=== PATIENT | female | born 1985 | race American Indian/Alaskan Native ===

== ENCOUNTER 2017-08-15 05:46 | Emergency (ER) | payer OTHER ==
[2017-08-15 06:13] LABS: Basophils % (Auto) 0.3 % (0.0-1.8); Eosinophils % (Auto) 0.5 % (0.0-4.3); Hemoglobin 11.1 gm/dl (10.1-14.3); Lymphocytes # (Auto) 1.4 K/mm3 (1.2-5.4); Lymphocytes % (Auto) 13.8 % (13.4-35.0); Mean Corpuscular HGB Conc 35 % (30-34); Mean Corpuscular Hemoglobin 28 pg (28-32); Mean Corpuscular Volume 82 fl (79-97); Monocytes # (Auto) 0.7 K/mm3 (0.0-0.8); Monocytes % (Auto) 6.9 % (0.0-7.3); Platelet Count 294 K/mm3 (140-440); Red Blood Count 3.92 M/mm3 (3.65-5.03); Red Cell Distribution Width 16.7 % (13.2-15.2)
[2017-08-15 06:23] LABS: Alanine Aminotransferase 36 units/L (7-56); Albumin 3.7 g/dL (3.9-5); BUN/Creatinine Ratio 15; Blood Urea Nitrogen 9 mg/dL (7-17); Calcium 9.4 mg/dL (8.4-10.2); Hemolysis Index 2
[2017-08-15 07:38] LABS: Bilirubin,Urine NEG (Negative); Blood,Urine NEG (Negative); Color,Urine Yellow (Yellow); Hyaline Casts,Urine 1 /LPF; Mucus,Urine FEW /HPF; Urobilinogen,Urine < 2.0 mg/dL (<2.0)
[2017-08-15] MEDS ORDERED: TYLENOL PO ONE (08:21)
[2017-08-15 08:22] VITALS: BP 127/84
--- NOTE | 2017-08-15 08:27 | Emergency Department Report ---
ED HPI - General Chief complaint: Abdominal Pain Stated complaint: STOMACH PAIN Time Seen by Provider: 08/15/17 08:12 Source: patient Mode of arrival: Ambulatory Limitations: No Limitations - History of Present Illness Initial comments: This is a 32-year-old female nontoxic, well nourished in appearance, no acute signs of distress presents to the ED with c/o of bilateral pelvic pain x2 days. Patient describes pelvic pain as cramping sensation level of 3 out of 10. Patient denies any radiation of pain. She denies any vaginal bleeding. Patient denies any urinary symptoms, vaginal discharge, fever, chills, nausea, vomiting, headache, stiff neck, chest pain, shortness of breath, numbness or tingling. Patient denies any allergies or significant past medical history. 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 Complaint: abdominal pain -: days(s) (2) Location: pelvis Radiation: none Severity: mild Severity scale (0 -10): 3 Quality: cramping Consistency: intermittent Improves with: none Worsens with: none Associated symptoms: denies other symptoms. denies: nausea/vomiting, vaginal bleeding, vaginal discharge, abdominal pain, dysuria, headache, vision changes, malaise, dysparuenia, rash, seizure, shortness of breath, syncope, weakness Vaginal bleeding: none :: Yes Number of weeks : 17 OB History - Current : no complications OB History - Previous Pregnancies: no complications Pre- care: followed by OB - Related Data : 1 Para: 2 Previous Rx's Medication Instructions Recorded Last Taken Type Acetaminophen 500 mg PO Q8H PRN #30 tablet 08/15/17 Unknown Rx Allergies Allergy/AdvReac Type Severity Reaction Status Date / Time No Known Allergies Allergy Unverified 08/15/17 05:49 ED Review of Systems ROS: Stated complaint: STOMACH PAIN Other details as noted in HPI Constitutional: denies: chills, fever Eyes: denies: eye pain, eye discharge, vision change ENT: denies: ear pain, throat pain Respiratory: denies: cough, shortness of breath, wheezing Cardiovascular: denies: chest pain, palpitations Endocrine: no symptoms reported Gastrointestinal: abdominal pain. denies: nausea, diarrhea Genitourinary: denies: urgency, dysuria, discharge Musculoskeletal: denies: back pain, joint swelling, arthralgia Skin: denies: rash, lesions Neurological: denies: headache, weakness, paresthesias Psychiatric: denies: anxiety, depression Hematological/Lymphatic: denies: easy bleeding, easy bruising ED Past Medical Hx - Past Medical History Hx Diabetes: Yes (gestational) Additional medical history: enlarge liver, Fibroids - Surgical History Past Surgical History?: No - Social History Smoking Status: Never Smoker Substance Use Type: None - Medications Home Medications: Home Medications Medication Instructions Recorded Confirmed Last Taken Type Acetaminophen 500 mg PO Q8H PRN #30 tablet 08/15/17 Unknown Rx ED Physical Exam - General Limitations: No Limitations General appearance: alert, in no apparent distress - Head Head exam: Present: atraumatic, normocephalic - Eye Eye exam: Present: normal appearance Pupils: Present: normal accommodation - ENT ENT exam: Present: normal exam, mucous membranes moist - Neck Neck exam: Present: normal inspection, full ROM. Absent: tenderness, meningismus, lymphadenopathy - Respiratory Respiratory exam: Present: normal lung sounds bilaterally. Absent: respiratory distress, wheezes, rales, rhonchi, stridor, chest wall tenderness, accessory muscle use, decreased breath sounds, prolonged expiratory - Cardiovascular Cardiovascular Exam: Present: regular rate, normal rhythm, normal heart sounds. Absent: tachycardia, irregular rhythm, systolic murmur, diastolic murmur, rubs , gallop - GI/Abdominal GI/Abdominal exam: Present: soft, normal bowel sounds. Absent: distended, tenderness, guarding, rebound, rigid, diminished bowel sounds - Expanded GI/Abdominal Exam Expanded GI/Abdominal exam: Absent: psoas sign, obturator sign, heel tap sign, Peralta's sign, Rovsing's sign, tenderness at Mcburney's Point, ascites - Rectal Rectal exam: Present: deferred - Extremities Exam Extremities exam: Present: normal inspection, full ROM, normal capillary refill - Back Exam Back exam: Present: normal inspection, full ROM. Absent: tenderness, CVA tenderness (R), CVA tenderness (L), paraspinal tenderness, vertebral tenderness - Neurological Exam Neurological exam: Present: alert, oriented X3, normal gait - Psychiatric Psychiatric exam: Present: normal affect, normal mood - Skin Skin exam: Present: warm, dry, intact, normal color. Absent: rash ED Course Vital Signs 08/15/17 08/15/17 05:44 08:16 Temperature 98.6 F Pulse Rate 113 H 100 H Respiratory 18 20 Rate Blood Pressure 139/91 127/84 O2 Sat by Pulse 97 96 Oximetry - Reevaluation(s) Reevaluation #1: 08/15/17 08:25 Patient is speaking in full sentences with no signs of distress noted. ED Medical Decision Making - Lab Data Result diagrams: 08/15/17 05:57 08/15/17 05:57 - Medical Decision Making This is a 32-year-old female presents with pelvic pain. Patient is stable and was examined by me. Normal abdominal exam. US OB obtained and dictated by the radiologist. Quantative serum test obtained. Patient notified of the US report with no questions noted by the patient. Vitals sign stable. Patient stated symptoms resolved after getting Tylenol in the ED. Labs within normal limits. Patient was referred to Follow-up with a BACK PAD INSPECTOR in 3-5 days or if symptoms worsen and continue return to emergency room as soon as possible. At time of discharge, the patient does not seem toxic or ill in appearance. No acute signs of distress noted. Patient agrees to discharge treatment plan of care. No further questions noted by the patient. Critical care attestation.: If time is entered above; I have spent that time in minutes in the direct care of this critically ill patient, excluding procedure time. ED Disposition Clinical Impression: , Pelvic pain affecting in second trimester, antepartum Disposition: DC-01 TO HOME OR SELFCARE Is pt being admited?: No Does the pt Need Aspirin: No Condition: Stable Instructions: (ED) Additional Instructions: Follow-up with a [facility] P[facility] INSPECTOR doctor in 3-5 days or if symptoms worsen and continue return to emergency room as soon as possible. Prescriptions: Acetaminophen 500 mg PO Q8H PRN #30 tablet PRN Reason: Pain Referrals: CHEYENNE PAZ CNM [Primary Care Provider] - 3-5 Days [facility] [Referring] - 3-5 Days [facility] [Provider Group] - 3-5 Days [facility] [Outside] - 3-5 Days Forms: Work/School Release Form(ED)
--- NOTE | 2017-08-15 09:55 | Ultrasound Report ---
OB ULTRASOUND GREATER THAN 14 WEEKS - TRANSABDOMINAL AND TRANSVAGINAL INDICATION: 17 weeks with pelvic pain. COMPARISON: None similar. TECHNIQUE: Transabdominal grayscale ultrasound with Doppler interrogation. Transvaginal imaging for cervix evaluation also performed. Gestation: Lozano Position: Cephalic Amniotic Fluid: WNL <24 weeks, Subjective Placenta: Anterior Placental Grade: 0 Heart Rate: 168 BPM Cervical length: 4.5 cm (Normal > 3 cm) It is too early for a anatomical survey BPD: 2.6 cm = 14 w 3 d HC: 10.3 cm = 14 w 6 d AC: 9.7 cm = 15 w 5 d FL: 1.7 cm = 14 w 6 d HC/AC Ratio: 1.06 Cephalic Index: 81.8 Clinical age = 14 w 6 d EDC: 02/07/2018 US Gest. Age = 15 w 0 d EDC: 02/06/2018 CONCLUSION: Single, viable intrauterine gestation with ultrasound estimated age of 15 weeks and zero days and EDC of 02/06/2018, currently in a vertex lie with details, as above. Thank you for the opportunity to participate in this patient's care.
== END 2017-08-15 10:07 | disposition home or self-care (01) ==
LOC: ED 05:46
DX: O26.892 Other specified pregnancy related conditions, second trimester (principal); R10.2 Pelvic and perineal pain; O24.419 Gestational diabetes mellitus in pregnancy, unspecified control; Z3A.17 17 weeks gestation of pregnancy
CPT/HCPCS: 36415; 76805; 76817; 80053; 81001; 84702; 85025

== ENCOUNTER 2017-11-22 08:56 | Emergency (ER) | payer OTHER ==
[2017-11-22 09:31] VITALS: BP 137/75
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
== END 2017-11-22 11:47 | disposition home or self-care (01) ==
LOC: ED 08:56
DX: O9A.213 Injury, poisoning and certain other consequences of external causes complicating pregnancy, third trimester (principal); S39.012A Strain of muscle, fascia and tendon of lower back, initial encounter; E11.9 Type 2 diabetes mellitus without complications; Z3A.29 29 weeks gestation of pregnancy; V89.2XXA Person injured in unspecified motor-vehicle accident, traffic, initial encounter; Y93.89 Activity, other specified; Y92.488 Other paved roadways as the place of occurrence of the external cause; Y99.8 Other external cause status
CPT/HCPCS: 99282

== ENCOUNTER 2017-11-22 11:54 | Outpatient (CLI) | payer OTHER ==
[2017-11-22] MEDS ORDERED: LACTATED RINGERS 500 ML IV ONE (13:39)
[2017-11-22 16:35] LABS: Basophils % (Auto) 0.2 % (0.0-1.8); Eosinophils % (Auto) 0.5 % (0.0-4.3); Hematocrit 32.3 % (30.3-42.9); Hemoglobin 10.9 gm/dl (10.1-14.3); Lymphocytes # (Auto) 1.4 K/mm3 (1.2-5.4); Lymphocytes % (Auto) 12.7 % (13.4-35.0); Mean Corpuscular HGB Conc 34 % (30-34); Mean Corpuscular Hemoglobin 28 pg (28-32); Mean Corpuscular Volume 84 fl (79-97); Monocytes # (Auto) 0.8 K/mm3 (0.0-0.8); Monocytes % (Auto) 7.5 % (0.0-7.3); Platelet Count 278 K/mm3 (140-440); Red Blood Count 3.84 M/mm3 (3.65-5.03)
[2017-11-22 16:51] LABS: INR 0.92 (0.87-1.13); Partial Thromboplastin Time 24.9 Sec. (24.2-36.6)
[2017-11-22 19:23] VITALS: BP 115/69
--- NOTE | 2017-11-23 08:21 | Ultrasound Report ---
ULTRASOUND BIOPHYSICAL PROFILE: History: well being Technique: Transabdominal ultrasound with Doppler interrogation. 2 - breathing movements 2 - movements 2 - posture and tone 2 - Qualitative amniotic fluid volume 8 - TOTAL SCORE OF POSSIBLE 8 Heart Rate (bpm) 121
--- NOTE | 2017-11-23 08:23 | Ultrasound Report ---
ULTRASOUND OB LIMITED History: well being, rule out abruption Technique: Transabdominal ultrasound with Doppler interrogation. Gestation: Single Position: Transverse with head to maternal right Placenta: Anterior Placental Grade: 1 No evidence for abruption. Heart Rate: 121 BPM
== END 2017-11-22 19:20 | disposition home or self-care (01) ==
LOC: TRG 11:54 → LD 12:53 → TRG 19:20
PROVIDERS: ATTEND Obstetrics & Gynecology
DX: O47.03 False labor before 37 completed weeks of gestation, third trimester (principal); Z3A.29 29 weeks gestation of pregnancy
CPT/HCPCS: 36415; 59025; 76815; 76819; 82962; 85025; 85379; 85610; 85730; 86850; 86900; 86901

== ENCOUNTER 2017-12-26 18:54 | Outpatient (CLI) | payer OTHER ==
[2017-12-26] MEDS ORDERED: LACTATED RINGERS 500 ML IV ONE (19:08)
[2017-12-26] MEDS ORDERED: LACTATED RINGERS 1,000 ML IV ONE (20:22)
[2017-12-26 20:43] LABS: Bacteria,Urine 1+ /HPF (Negative); Bilirubin,Urine NEG (Negative); Blood,Urine NEG (Negative); Calcium Oxalate Crystals,Urine 2+; Color,Urine Yellow (Yellow); Mucus,Urine FEW /HPF; Urobilinogen,Urine < 2.0 mg/dL (<2.0)
[2017-12-26 20:50] LABS: Amphetamine Screen,Urine PRESUMPTIVE NEGATIVE; Benzodiazepines Screen,Urine PRESUMPTIVE NEGATIVE; Cannabinoid Screen,Urine PRESUMPTIVE NEGATIVE; Cocaine Screen,Urine PRESUMPTIVE NEGATIVE; Methadone Screen,Urine PRESUMPTIVE NEGATIVE; Opiate Screen,Urine PRESUMPTIVE NEGATIVE
[2017-12-26] MEDS ORDERED: BRETHINE SUB-Q ONE (20:55)
[2017-12-26] MEDS ORDERED: PROCARDIA*For Tocolysis only PO ONE (23:46)
[2017-12-26 23:59] VITALS: BP 125/74
--- NOTE | 2017-12-27 07:11 | Event Note ---
Date: 12/27/17 32 year old female presented to L&D triage for possible contractions. Patient states she has been having Vinay Wells contractions for several weeks. Patient reports she feels they became worse last night. Patient denies vaginal bleeding or leaking of fluid. She denies falls or abdominal trauma. Patient reports active movement. Patient reports she receives care at [facility] and also sees perinatologist at [facility] (seeing specialist due to morbid obesity and GDM requiring insulin). No records are available but patient states she saw both her primary OB provider and [facility] last week (and also has a follow up appt. with both this week). On exam, patient is well appearing, A&O, NAD. Abdomen is soft and nontender without guarding or rigidity. Speculum exam performed: no leaking of fluid or vaginal bleeding noted. White normal appearing vaginal discharge. FFN performed which was negative. Cervix closed, thick, posterior, presenting part high. Patient had some irregular contractions upon arrival which palpated mild. Patient was given IV fluid bolus, one dose of SQ Brethine, and one dose of Procardia 10 mg po during her stay in triage. The contractions resolved. Patient denied pain. UDS negative. Urinalysis did not indicate any infection. Blood glucose was 107. Patient was found not to be in labor. In consultation with Dr. Mitchell, patient was discharged home and advised to rest, avoid intercourse, and follow up with her OB-CONTROL SYSTEMS TECHNICIAN early this week. Signs of labor were discussed with patient; daily movement counting was advised. Pt. voiced understanding of discharge instructions and was discharged home in good condition.
== END 2017-12-27 01:20 | disposition home or self-care (01) ==
LOC: TRG 18:54
PROVIDERS: ATTEND Obstetrics & Gynecology
DX: O26.893 Other specified pregnancy related conditions, third trimester (principal); O24.419 Gestational diabetes mellitus in pregnancy, unspecified control; R10.9 Unspecified abdominal pain; Z3A.36 36 weeks gestation of pregnancy
CPT/HCPCS: 36415; 59025; 80307; 81001; 82731; 82962; 96360; 96372; J3105; J7120

== ENCOUNTER 2017-12-28 11:03 | Outpatient (CLI) | payer OTHER ==
[2017-12-28] MEDS ORDERED: CELESTONE SOLUSPAN IM ONE (11:19)
--- NOTE | 2017-12-28 13:35 | Ultrasound Report ---
ULTRASOUND BIOPHYSICAL PROFILE: History: Decreased movement Technique: Transabdominal ultrasound with Doppler interrogation. 2 - breathing movements 2 - movements 2 - posture and tone 2 - Qualitative amniotic fluid volume 8 - TOTAL SCORE OF POSSIBLE 8 Heart Rate (bpm) 148
== END 2017-12-28 13:54 | disposition home or self-care (01) ==
LOC: TRG 11:03
PROVIDERS: ATTEND Obstetrics & Gynecology
DX: O47.03 False labor before 37 completed weeks of gestation, third trimester (principal); O24.419 Gestational diabetes mellitus in pregnancy, unspecified control; Z3A.34 34 weeks gestation of pregnancy
CPT/HCPCS: 59025; 76819; 96372; J0702

== ENCOUNTER 2017-12-29 13:31 | Outpatient (CLI) | payer OTHER ==
[2017-12-29] MEDS ORDERED: CELESTONE SOLUSPAN IM ONE (14:09)
[2017-12-29] MEDS ORDERED: LACTATED RINGERS 500 ML IV ONE (14:17)
== END 2017-12-29 14:28 | disposition home or self-care (01) ==
LOC: TRG 13:31
PROVIDERS: ATTEND Obstetrics & Gynecology
DX: O47.03 False labor before 37 completed weeks of gestation, third trimester (principal); Z3A.34 34 weeks gestation of pregnancy
CPT/HCPCS: 96372; J0702